=== PATIENT | female | born 1965 | race Caucasian/White ===

== ENCOUNTER 2023-10-23 09:56 | Outpatient (REF) | payer OTHER, SELFPAY ==
[2023-10-23 15:30] LABS: Abs Immature Grans 0.03 10^3/uL (0.0-0.06); Absolute Basophil Count 0.11 10^3/uL (0.0-0.2); Absolute Lymphocyte Count 2.68 10^3/uL (1.2-3.4); Absolute Monocyte Count 0.56 10^3/uL (0.1-0.8); Absolute Neutrophil Count 3.55 10^3/uL (1.2-6.7); Basophils % 1.4; Eosinophils % 11.5; HCT 41.9 % (36.0-46.0); HGB 13.8 g/dL (11.2-15.7); Immature Grans % 0.4; Lymphocytes % 34.2; MCH 28.4 pg (27.0-33.0); MCHC 32.9 % (32.0-36.0); MCV 86 fL (80-95); MPV 11.1 fL (8.0-11.0); Monocytes % 7.2; Neutrophils % 45.3; Platelet Count 511 10^3/uL (130-400); RBC 4.86 10^6/uL (3.93-5.22); RDW 13.1 % (11.7-14.6); RDW-SD 40.9 fL; WBC 7.83 10^3/uL (4.4-10.8)
[2023-10-23 16:15] LABS: Anion Gap 9.9 mmol/L (3-11); BUN 13 mg/dL (7-18); CO2 27.1 mmol/L (21.0-32.0); CREATININE 0.9 mg/dL (0.55-1.02); Calcium 9.6 mg/dL (8.5-10.1); Calculated LDL 120 mg/dL (<100); Chloride 107 mmol/L (98-107); Cholesterol 201 mg/dL (<200); Estimated GFR 74.57 (mL/min/1.73m2); Glucose 100 mg/dL (74-106); HDL Cholesterol 56 mg/dL (40-60); Potassium 4.4 mmol/L (3.5-5.1); Sodium 144 mmol/L (136-145); Triglyceride 125 mg/dL (<150)
== END 2023-10-23 09:57 | disposition home or self-care (01) ==
LOC: NCHCN 09:56
PROVIDERS: PCP Student in an Organized Health Care Education/Training Program; Visit Provider Student in an Organized Health Care Education/Training Program
DX: I10 Essential (primary) hypertension (principal); E78.5 Hyperlipidemia, unspecified
CPT/HCPCS: 80048; 80061; 85025

== ENCOUNTER 2024-01-23 11:32 | Outpatient (REF) | payer OTHER, SELFPAY ==
[2024-01-23 14:51] LABS: Abs Immature Grans 0.02 10^3/uL (0.0-0.06); Absolute Basophil Count 0.07 10^3/uL (0.0-0.2); Absolute Eosinophil Count 0.38 10^3/uL (0.0-0.7); Absolute Monocyte Count 0.45 10^3/uL (0.1-0.8); Absolute Neutrophil Count 3.43 10^3/uL (1.2-6.7); Eosinophils % 5.5 %; HCT 42.7 % (36.0-46.0); Immature Grans % 0.3 %; Lymphocytes % 36.5 %; MCH 28.9 pg (27.0-33.0); MCHC 32.8 % (32.0-36.0); MCV 88 fL (80-95); MPV 11.1 fL (8.0-11.0); Monocytes % 6.6 %; Neutrophils % 50.1 %; Platelet Count 521 10^3/uL (130-400); RBC 4.85 10^6/uL (3.93-5.22); RDW 13.2 % (11.7-14.6); RDW-SD 42.5 fL; WBC 6.85 10^3/uL (4.4-10.8)
[2024-01-23 15:26] LABS: TSH (W/Ref FT4) 2.71 uIU/mL (0.36-3.74)
== END 2024-01-23 11:33 | disposition home or self-care (01) ==
LOC: NCHCN 11:32
PROVIDERS: PCP Student in an Organized Health Care Education/Training Program; Visit Provider Student in an Organized Health Care Education/Training Program
DX: D75.839 Thrombocytosis, unspecified (principal); I10 Essential (primary) hypertension; E78.5 Hyperlipidemia, unspecified
CPT/HCPCS: 84443; 85025

== ENCOUNTER 2025-03-17 16:21 | Outpatient (REF) | payer OTHER, SELFPAY ==
[2025-03-17 15:37] LABS: Abs Immature Grans 0.02 10^3/uL (0.0-0.06); HCT 41.6 % (36.0-46.0); HGB 13.9 g/dL (11.2-15.7); Immature Grans % 0.3 %; MCH 28.9 pg (27.0-33.0); MCHC 33.4 % (32.0-36.0); MCV 87 fL (80-95); MPV 11.0 fL (8.0-11.0); Platelet Count 561 10^3/uL (130-400); RBC 4.81 10^6/uL (3.93-5.22); RDW 13.4 % (11.7-14.6); RDW-SD 42.0 fL; WBC 7.28 10^3/uL (4.4-10.8)
[2025-03-17 15:55] LABS: Iron 64 ug/dL (50-170); Total Iron Binding Capacity 324 ug/dL (250-450); Transferrin Sat 20 % (15-50)
[2025-03-17 16:01] LABS: ALT 39 U/L (14-59); AST 18 U/L (15-37); Albumin 4.0 g/dL (3.4-5.0); Alkaline Phosphatase 96 U/L (46-116); Anion Gap 4.8 mmol/L (3-11); BUN 20 mg/dL (7-18); Bilirubin, Total 0.4 mg/dL (0.2-1.0); CO2 32.2 mmol/L (21.0-32.0); Calcium 9.3 mg/dL (8.5-10.1); Chloride 106 mmol/L (98-107); Estimated GFR 100.19 (mL/min/1.73m2); Ferritin 47 ng/mL (8-252); Glucose 91 mg/dL (74-106); Potassium 4.8 mmol/L (3.5-5.1); Sodium 143 mmol/L (136-145); Total Protein 6.7 g/dL (6.4-8.2)
[2025-03-17 17:17] LABS: COMMENT (LAB VIEW ONLY) 327.44 mg/dL; Microalb ug/mg Crea 4.1 ug/mg Cr
[2025-03-17 17:19] LABS: Hemoglobin A1C 5.7 % (<5.7)
== END 2025-03-17 16:22 | disposition home or self-care (01) ==
LOC: NCHCN 16:21
PROVIDERS: PCP Student in an Organized Health Care Education/Training Program; Visit Provider Student in an Organized Health Care Education/Training Program
DX: G25.81 Restless legs syndrome (principal); Z13.1 Encounter for screening for diabetes mellitus; R06.02 Shortness of breath; I10 Essential (primary) hypertension
CPT/HCPCS: 80053; 82043; 82570; 82728; 83036; 83540; 83550; 85025

== ENCOUNTER 2025-03-24 04:22 | Outpatient (CLI) | payer OTHER, SELFPAY ==
[2025-03-24] MEDS: Levalbuterol HFA 15 GM INH 4 PUFF IH (09:22)
[2025-03-24] MEDS: Inhaler, Assist Device 1 EACH MC (09:22)
--- NOTE | 2025-03-24 13:51 | W.PFT ---
Date of service: 03/24/25 Time of Service: 08:00 Pulmonary Function Test Result Indications: Dyspnea on exertion Impression 1. Good patient effort was noted. ATS standards for reproducibility were met. 2. Normal spirometry. 3. Following the administration of a bronchodilator there was not a significant response 4. TLC was normal. No evidence of restrictive lung disease 5. DLCO was normal indicating normal alveolar gas exchange
== END 2025-03-24 04:23 | disposition home or self-care (01) ==
LOC: RT 04:22
PROVIDERS: PCP Student in an Organized Health Care Education/Training Program; Visit Provider Internal Medicine Pulmonary Disease
DX: R06.09 Other forms of dyspnea (principal)
CPT/HCPCS: 94060; 94726; 94729

== ENCOUNTER 2025-04-14 10:26 | Outpatient (CLI) | payer OTHER, SELFPAY ==
--- NOTE | 2025-04-14 08:30 | DI.US_ITS ---
APPROVED REPORT EXAM: Comprehensive 2D, Doppler, and color-flow Echocardiogram Patient Location: Out-Patient [facility] Threader: Satinder Fuentes RDCS (AE) Indications: SOB w/ chest pain, HTN, hx tobacco use Other Information Study Quality: Fair. Technically limited study due to body habitus. Conclusion Normal left ventricular wall thickness and chamber size. Ejection fraction is 60 to 65%. Wall motion is normal Normal right ventricular size and function Both atria are normal in size There are no structural valvular abnormalities Moderate tricuspid regurgitation. Estimated right ventricular systolic pressure is 41 mmHg Wall motion Left Ventricle The left ventricle is normal size. Left ventricular systolic function is normal. The left ventricular ejection fraction is within the normal range. There is normal left ventricular wall thickness. There is normal LV segmental wall motion. There is no ventricular septal defect visualized. LVEF is 60-65%. Right Ventricle The right ventricle is normal size. The right ventricular systolic function is normal. Atria The left atrium size is normal. The right atrium size is normal. The interatrial septum is intact with no evidence for an atrial septal defect. Aortic Valve The aortic valve is normal in structure. There is no aortic valvular stenosis. No aortic regurgitation is present. Mitral Valve The mitral valve is normal in structure. No evidence of mitral valve stenosis. Trace mitral regurgitation. Tricuspid Valve The tricuspid valve is normal in structure. There is no tricuspid valve stenosis. Moderate tricuspid regurgitation. The RVSP is 41.4 mmHg. Pulmonic Valve The pulmonary valve is normal in structure. There is no pulmonic valvular stenosis. There is no pulmonic valvular regurgitation. Great Vessels The aortic root is normal in size. The ascending aorta is normal in size. Aortic arch is normal in caliber. IVC is normal in size and collapses >50% with inspiration. Pericardium There is no pericardial effusion. 2D Dimensions IVSD d PLAX 0.93 cm F: 0.6-1.0 Ao Root d 2.67 cm F: 2.7 - 3.3 LVPW d PLAX 0.90 cm F: 0.6 - 1.0 Ao Asc Diam d 3.07 cm F: 2.3 - 3.1 LVID d PLAX 4.99 cm F: 3.8 - 5.2 LVDs 3.29 cm F: 2.2 - 3.5 LV EF Teichholz 62.6 % FS 33.96 % LV EDV (Teich) 117.6 mL LV ESV (Teich) 43.9 mL Stroke Vol Index (Teich) 36.64 M-Mode TAPSE 2.79 cm (M/F) >1.7 Auto EF LV EDV A4C 99.0 mL LV EDV A2C 107.4 mL LV EDV BP 103.7 mL LV ESV A4C 40.0 mL LV ESV A2C 43.5 mL LV ESV BP 41.1 mL LVEF(%) A4C 59.6 % LVEF(%) A2C 59.6 % LVEF(%) BP 60.4 % LV SV A4C 59.1 ml LV SV A2C 64.0 ml LV SV BP 62.6 ml LV CO A4C 4.2 L/min LV CO A2C 4.8 L/min LV CO BP 4.5 L/min HR A4C 71.29 BPM HR A2C 74.85 BPM LV EDV Index (BP) LA Volume LA Length A4C 3.9 cm LA Length A2C 4.3 cm LA Area A4C s 7.72 cm2 LA Area A2C s 10.93 cm2 LA Vol A4C A-L 13.02 mL LA Vol A2C A-L 23.57 mL LA Vol Biplane A-L 18.4 mL LA Vol/BSA A4C A-L LA Vol/BSA A2C A-L LA Vol/BSA BP A-L 9.2 mL/m2 LA Vol A4C MOD 12.5 mL LA Vol A2C MOD 21.5 mL LA Vol BP MOD 17.1 mL RA Volume RA Area A4C 8.4 cm2 RA ESV A4C (A-L) 16.3mL RA Vol/BSA A4C A-L RA Length A4C 3.7 cm RA ESV A4C (MOD) 15.2mL LV Diastology MV E' medial 0.108 (>0.07 m/s) MV E Vmax 0.78 (0.4-1.3 m/s) MV E/E' MED 7.26 (<14) MV A Vmax 0.75 (0.4-1.3 m/s) MV E' lateral 0.115 (>0.1 m/s) E/A Ratio 1.0 MV E/E' LAT 6.83 (<14) MV E' Average 0.111 m/s MV E/E'(average) 7.04 Aortic Valve AoV Vmax 1.50 m/s LVOT Vmax 1.14 m/s AoV Peak Grad 8.9 mmHg LVOT Peak Grad 5.2 mmHg AoV Area (Vmax) 2.29 cm2 LVOT VTI 0.253 m AoV VTI 0.327 m LVOT Mean Grad 2.7 mmHg AoV Mean Ivan. 0.98 m/s LVOT SV 75.74 mL AoV Mean Grad 4.4 mmHg LVOT Diam s 1.95 cm AoV Area (VTI) 2.32 cm2 AV Regurg Peak Gr. 8.95 mmHg Velocity Ratio 0.76 Mitral Valve MV DT 194 (160-240 msec) Pulmonary Valve PV Vmax 0.97 (0.5-1.5 m/s) RVOT Vmax 0.59 m/s PV Peak Grad 3.8 mmHg RVOT Peak Gr. 1.4 mmHg PV Mean Ivan 0.55 m/s RVOT VTI 0.108 m PV Mean Grad 1.5 mmHg RVOT Mean Gr. 0.7 mmHg Tricuspid Valve RA Pressure 3.00 mmHg TR Vmax 3.10 m/s TR Peak Grad 38.3 mmHg RVSP (TR) 41.4 mmHg
== END 2025-04-14 10:46 ==
LOC: DI 10:26
PROVIDERS: PCP Student in an Organized Health Care Education/Training Program; Visit Provider Internal Medicine Cardiovascular Disease
DX: R06.02 Shortness of breath (principal); Z87.891 Personal history of nicotine dependence; I10 Essential (primary) hypertension; R07.9 Chest pain, unspecified
CPT/HCPCS: 93306

== ENCOUNTER 2025-04-28 09:37 | Outpatient (CLI) | payer OTHER, SELFPAY ==
--- NOTE | 2025-04-28 09:30 | RT.EKG_ITS ---
APPROVED REPORT Exam: Resting ECG Reason for Exam: SOB Patient Location: O HR:65 bpm ECG Measurements Heart Rate 65 AXIS UT 120 P 51 QRSd 83 QRS -6 QT 412 T -2 QTc 429 Conclusion Sinus rhythm...normal P axis, V-rate 50- 99 Low voltage, precordial leads...precordial leads <1.0mV Otherwise normal ECG
== END 2025-04-28 09:38 | disposition home or self-care (01) ==
LOC: DI.CARD 09:38
PROVIDERS: PCP Student in an Organized Health Care Education/Training Program; Visit Provider Internal Medicine Cardiovascular Disease
DX: I10 Essential (primary) hypertension (principal); R06.02 Shortness of breath
CPT/HCPCS: 93010